=== PATIENT | female | born 1985 | race Two or more races ===

== ENCOUNTER 2024-02-08 07:00 | Day surgery (SDC) | payer OTHER ==
[2024-02-02 15:11] VITALS: BP 117/75
[~2024-02-08] VITALS: Ht 165.1 cm; Wt 80.3 kg
[~2024-02-08 07:00] MED LIST: FOSAMAX70 MG PO; WEGOVY2.4 MG/0.7
[2024-02-08] MEDS ORDERED: PERCOCET 5-3251 EACH PO (15:25)
[2024-02-08] MEDS ORDERED: MORPHINE SULFATE 4 MG/ML VIAL IV ONE ×2 (15:30→16:15)
== END 2024-02-08 17:30 | disposition home or self-care (01) ==
LOC: CIR.AMB 07:00
PROVIDERS: ATTEND Obstetrics & Gynecology Gynecology
DX: D27.0 Benign neoplasm of right ovary (principal); N84.0 Polyp of corpus uteri; N72 Inflammatory disease of cervix uteri